=== PATIENT | male | born 1960 | race Caucasian/White ===

== ENCOUNTER 2016-11-02 02:55 | Inpatient (IN) | payer OTHER ==
[~2016-11-02] VITALS: Ht 177.8 cm; Wt 52.5 kg
--- NOTE | ~2016-11-02 | 2DMMODE ---
[facility] [place] [address] 2 D/M-MODE ECHOCARDIOGRAM Name: JOSERHETT Room #: 464-P ADM IN M.R.#: [id number] Admission: 11/02/16 Attend Phys: Rochelle Scherer Discharge: Date of : 64 Date of Service: 11/02/16 1429 Report #: [id number] THIS REPORT FOR: //name// APPROVED REPORT EXAM: Comprehensive 2D, Doppler, and color-flow Echocardiogram Patient Location: Bedside Blood Pressure: 85/53 mmHg HR: 85 bpm Other Information Study Quality: Adequate Indications COPD Chest Pain 2D Dimensions LVEF(%): 56.30 (>50%) IVSd: 6.43 (7-11mm) LVOT Diam: 20.70 (18-24mm) LVDd: 47.73 mm PWd: 6.83 (7-11mm) LVDs: 33.68 (25-40mm) IVC: 22.00 mm Aortic Root: 29.00 mm Douglas's LVEF: 56.30 % Volumes Left Atrial Volume (Systole) Single Plane 4CH: 20.11 mL Single Plane 2CH: 15.81 mL LA ESV Index: 12.00 mL/m2 Aortic Valve AoV Peak Richard.: 1.30 m/s AO Peak Gr.: 6.80 mmHg LV Max P.46 mmHg LV Max: 1.06 m/s Mitral Valve MV PHT: 81.92 ms MV E Max Richard.: 0.84 m/s E/A Ratio: 1.3 MV A Richard.: 0.64 m/s MV Decel. Time: 282.47 ms Pulmonary Valve [facility] [address] [place] [address] 2 D/M-MODE ECHOCARDIOGRAM Name: RHETT GARCIA Room #: 464- ADM IN .R.#: [id number] Admission: 11/02/16 Attend Phys: Rochelle Scherer Discharge: Date of : 64 Date of Service: 11/02/16 1429 Report #: [id number] PV Peak Richard.: 0.98 m/s PV Peak Gr.: 3.86 mmHg Tricuspid Valve RAP Estimate: 10.00 mmHg Left Ventricle The left ventricle is normal size. There is normal LV segmental wall motion. There is normal left ventricular wall thickness. Left ventricular systolic function is normal. The left ventricular ejection fraction is within the normal range. LVEF is 55-60%. The left ventricular diastolic function is normal. Right Ventricle The right ventricle is normal size. The right ventricular systolic function is normal. Atria The left atrium size is normal. The right atrium size is normal. Aortic Valve The aortic valve is normal in structure. No aortic regurgitation is present. There is no aortic valvular stenosis. Mitral Valve The mitral valve is normal in structure. There is no mitral valve regurgitation noted. Tricuspid Valve The tricuspid valve is normal in structure. There is no tricuspid valve regurgitation noted. Pulmonic Valve The pulmonary valve is normal in structure. There is no pulmonic valvular regurgitation. Great Vessels The aortic root is normal in size. The inferior vena cava is dilated with a decrease in inspiratory collapse. Pericardium There is no pericardial effusion. <Conclusion> The left ventricle is normal size. Left ventricular systolic function is normal. [facility] [address] [address] [place] [address] 2 D/M-MODE ECHOCARDIOGRAM Name: RHETT GARCIA Room #: 464-P ADM IN M.R.#: [id number] Admission: 11/02/16 Attend Phys: Rochelle Scherer Discharge: Date of : 64 Date of Service: 11/02/16 1429 Report #: [id number] LVEF is 55-60%. The inferior vena cava is dilated with a decrease in inspiratory collapse. <ELECTRONICALLY SIGNED> By: Jacobo Beltrán MD 11/02/16 1429 142 142 Jacobo Beltrán MD /INF
--- NOTE | ~2016-11-02 | EKG ---
[address] [address] ELECTROCARDIOGRAM REPORT Name: JOSERHETT Room #: 464-P ADM IN M.R.#: [id number] Admission: 11/02/16 Attend Phys: Hal Mora MD Discharge: Date of : 64 Report #: [id number] THIS REPORT FOR: //name// [facility] ED Test Date: 2016-11-01 Test Time: 22:21:30 Pat Name: RHETT GARCIA Department: Room: [facility] Gender: M Fashion Coordinator: LISSA : 1960 Requested By: Ulises Llanos Order Number: [id number] MD: Augusto Corona Measurements Intervals [place] Rate: 115 P: 31 DC: 145 QRS: 100 QRSD: 84 T: 8 QT: 320 QTc: 443 Interpretive Statements Sinus tachycardia Rightward axis No previous ECG available for comparison Electronically Signed On 11-02-2016 19:04:42 CDT by Augusto Corona [email or web address] <ELECTRONICALLY SIGNED> By: Augusto Corona MD, [facility] 11/02/16 1904 2220 20 Augusto Corona MD, FACC /EPI
--- NOTE | ~2016-11-02 | HC ---
[facility] [place] [address] CONSULTATION Name: RHETT GARCIA Room #: 464-P [facility] IN M.R.#: [id number] Admission: 11/02/16 Attend Phys: Hal Mora MD Discharge: 11/05/16 Date of : 64 Report #: [id number] THIS REPORT FOR: //name// CC: RICKY physician/PCP Hal Mora REASON FOR CONSULTATION: I was asked to evaluate concerning left lung infiltrate. HISTORY OF PRESENT ILLNESS: The patient is a 55-year-old with underlying emphysema, on outpatient program of inhalers. The patient had been homeless, but now lives in basement of a friend. About a week ago, he had the acute onset of fever, chills, cough with green purulent sputum production along with the subsequently development of left pleuritic chest pain. He denies hemoptysis. No nausea, vomiting, or diarrhea. He has had low grade fever. Continues to have intermittent chills and night sweats. He states he has lost about 30 pounds over the last year or two. He has been unable to put weight back on. Appetite has been reasonable. He smokes cigarettes. No travel outside the [place]. He is unemployed from labor type work. Exposure to dogs. He has had tuberculosis exposure when he was a child to his mother, although he thinks he was PPD negative when he was in the . Denies HIV risk factors and states his HIV is negative as of year ago. No significant alcohol intake. He does have dental issues with multiple fractured teeth. No history of sinus disease. He has underlying coronary disease and states he has had an infarct in the past. A month ago, he underwent lumbar spine surgery from anterior approach. Continues to have some abdominal discomfort regarding this. PAST MEDICAL HISTORY: Otherwise, no additions other than what is discussed above. ALLERGIES: LATEX and CODEINE. MEDICATIONS: Levaquin and prednisone were started 2 days ago. He continues on Levaquin and Solu-Medrol. FAMILY HISTORY: Noncontributory other than he states that his father may have had tuberculosis. SOCIAL HISTORY: As noted above. REVIEW OF SYSTEMS: No skin lesions, adenopathy, syncopal episodes, GI, or complaints. PHYSICAL EXAMINATION: VITAL SIGNS: Afebrile and hemodynamically stable. [address] [address] CONSULTATION Name: RHETT GARCIA Room #: 464-[facility] IN M.R.#: [id number] Admission: 11/02/16 Attend Phys: Hal Mora MD Discharge: 11/05/16 Date of : 64 Report #: [id number] GENERAL: He was alert and cooperative. Oxygen saturation was normal on room air. He was thin. Xerosis. No adenopathy. EYES: Unremarkable. MOUTH: Dentition in poor repair with multiple fractured teeth. NECK: Supple, without thyromegaly or mass. LUNGS: Decreased breath sounds bilaterally with no consolidation. I could appreciate no rub. HEART: Regular, without murmur. ABDOMEN: Soft, mild tenderness in the lower midline abdomen clara-incisional region. No masses or hepatosplenomegaly. EXTREMITIES: Unremarkable. LABORATORY STUDIES: Hemoglobin 11.7, white count 12.6, and platelet count 258,000. Sodium 141, potassium 3.9, bicarbonate 25, and creatinine 0.9. Liver function test normal. Troponin negative. ECG, sinus tach. Echocardiogram, normal ejection fraction. CT scan of the chest with IV contrast showed cystic emphysematous changes with 3.6 x 2.4 wedge-type infiltrate in the lingula, which abuts the pleural. Blood cultures are pending. Sputum culture is pending. Influenza antigen negative. IMPRESSION: A 55-year-old with chronic obstructive pulmonary disease, now with community-acquired pneumonia in the left lung associated with pruritus. I suspect bacterial community-acquired organisms. I doubt this would be malignancy given the previous images over the last several years have been negative along with the acute onset of his symptoms. Organisms of concern would be community bacterial in nature. We would recommend screening for MRSA. Check sputum for bacteria, fungus and AFB. Obtain a T-SPOT due to the patient's reported exposure and HIV testing. We will continue with Levaquin and corticosteroids pending further studies. <ELECTRONICALLY SIGNED> By: Ulises Galaviz MD 11/07/16 0934 1201 0041 Ulises Galaviz MD /nt
--- NOTE | ~2016-11-02 | CNG ---
[facility] [place] [address] CYTO-NONGYN REPORT PROCEDURE Name: ANGELAVALERIAMARISABELPEPITO Room #: 464-P [facility] IN M.R.#: [id number] Admission: 11/02/16 Date of : 64 Discharge: 11/05/16 Report #: [id number] Path Case #: [id number] CYTOPATHOLOGY REPORT COLLECTION DATE: 11/03/2016 RECEIVED DATE: 11/07/2016 SUBMITTING PHYS: Dr. Vicki Zayas OTHER PHYS: Dr. Morgan Hogn CLINICAL HISTORY: Pneumonia, chest pain, tachycardia. SPECIMEN(S) RECEIVED: A.Sputum * * * * * * * * * * * * FINAL DIAGNOSIS: A. Sputum: - No malignant cells identified. Squamous cells, mucus, and occasional bronchial epithelial cells and alveolar macrophages present. PATHOLOGIST: Iesha Santacruz M.D. REPORT ELECTRONICALLY SIGNED BY: Iesha Santacruz M.D. DATE/TIME: 11/08/2016 14:50 * * * * * * * * * * * * GROSS PATHOLOGY: A. Sputum: The specimen is submitted unfixed, labeled "Pepito Hernandes". Received by the Cytology Department is one mL of thick brown fluid. One ThinPrep slide was prepared. (clt 11.07.2016) EGG CANDLER(S): RENEE Cordoba([facility])IAC INITIAL CPT CODE(S): A; 32487 Professional services performed by [facility] at [facility] [address], [place] [address] Technical services performed by [facility] at [address] [place] [address]., [address], [place] [address]. [facility] [address] [place] [address], [facility] [address] [place] [address] PHONE: [phone] [facility] [address] [place] [address] CYTO-NONGYN REPORT PROCEDURE Name: PEPITO HERNANDES Room #: 464-P DIS IN M.R.#: [id number] Admission: 11/02/16 Date of : 64 Discharge: 11/05/16 Report #: [id number] Path Case #: [id number] DIRECTOR: Hima Hess M.D. * * * END OF REPORT * * *
[~2016-11-02 02:55] MED LIST: ADVAIR 250-501 EACH INH; AMOXICILLIN 50500 M1 PO; CORTISPORIN OTI10 ML OTIC; CYCLOBENZAPRINE5 MG PO; DUONEB 2.5-0.5 M3 ML INH; FLEXERIL PO; IBUPROFEN 600600 M1 PO; LEVAQUIN 500 M500 M2 PO; LEVAQUIN 500 M500 M5 PO; LEVAQUIN 750 M750 MG PO; LOVASTATIN 20 M20 MG PO; MOM PO; MUCINEX TA600 MG/TA2 PO; MUCINEX600 MG PO; NOHOMEMEDICATIONS; NORCO 5-325 TA1 EACH PO; NORFLEX100 MG PO; PAIN & FEVER325 MG PO; PENICILLIN VK500 M1 PO; PERCOCET 5-3251 EACH PO; PREDNISONE 10 M10 M1; PREDNISONE 10 M10 MG PO; PREDNISONE 20 M20 MG; PREDNISONE 20 M20 MG PO; PROAIR HFA8.5 GM INH; PROVENTIL HFA6.7 G1 INH; ROBAXIN 750 MG750 M1 PO; SPIRIVA INH; TYLENOL325 MG PO; VENTOLIN HFA 1818 GM INH; VENTOLIN HFA INH8 GM INH; VICODIN 5-5001 EACH PO; [UNRECOGNIZED DRUG - REMARK]
[2016-11-02] MEDS ORDERED: SPIRIVA18 MCG INH (03:07)
[2016-11-02] MEDS ORDERED: SYMBICORT160 MCG/4. INH (03:07)
[2016-11-02] MEDS ORDERED: PERCOCET 7.5-31 EACH PO (03:08)
[2016-11-02 03:35] LABS: ABSOLUTE NEUTROPHILS 9.8 thou/uL (1.4-8.2); BASOPHILS 0.2 % (0.0-2.0); EOSINOPHILS 0.2 % (0.0-3.0); HEMATOCRIT 41.6 % (42.0-52.0); LYMPHOCYTES 12.4 % (24.0-44.0); MCH 30.8 pg (26.0-34.0); MCHC 33.6 g/dL (28.0-37.0); MCV 91.5 fL (80.0-100.0); MONOCYTES 5.1 % (1.0-8.0); PLATELET COUNT 262 thou/uL (150-400); POLYS 82.1 % (36.0-66.0); RBC 4.55 mil/uL (4.50-6.00); RDW 13.5 % (10.5-14.5)
[2016-11-02 03:42] LABS: MANUAL DIFF NO
[2016-11-02 03:46] LABS: APTT 24.7 Seconds (24.5-32.8); PROTIME 10.2 Seconds (9.3-11.4)
[2016-11-02 03:58] LABS: ALBUMIN 3.5 g/dL (3.4-5.0); ALKALINE PHOSPHATASE 113 U/L (46-116); ANION GAP 9 mmol/L (7-16); BUN 15 mg/dL (7-18); CALCIUM 9.2 mg/dL (8.5-10.1); CHLORIDE 105 mmol/L (98-107); CK-MB MASS 1.8 ng/mL (<0.5-3.6); CO2 28 mmol/L (21-32); GLUCOSE 115 mg/dL (70-99); MAGNESIUM 2.1 mg/dL (1.8-2.4); NT-PRO BRAIN NAT PEPTIDE 153 pg/mL (<300); POTASSIUM 3.8 mmol/L (3.5-5.1); SGOT 20 U/L (15-37); SGPT 23 U/L (30-65); SODIUM 142 mmol/L (136-145); TOTAL BILIRUBIN 0.3 mg/dL (<0.1-1.0); TOTAL PROTEIN 7.1 g/dL (6.4-8.2); TROPONIN-I < 0.04 ng/mL (<0.04-0.07)
[2016-11-03 05:17] LABS: HEMATOCRIT 34.9 % (42.0-52.0); MCH 30.7 pg (26.0-34.0); MCHC 33.6 g/dL (28.0-37.0); MCV 91.5 fL (80.0-100.0); PLATELET COUNT 258 thou/uL (150-400); RBC 3.81 mil/uL (4.50-6.00); RDW 13.7 % (10.5-14.5); WBC 12.6 thou/uL (4.0-11.0)
[2016-11-03 05:26] LABS: HEMOGLOBIN 11.7 gm/dL (14.0-18.0)
[2016-11-03 05:27] LABS: MANUAL DIFF YES
[2016-11-03 05:47] LABS: CALCIUM 8.7 mg/dL (8.5-10.1); CREATININE 0.9 mg/dL (0.6-1.3); MAGNESIUM 1.9 mg/dL (1.8-2.4); POTASSIUM 3.9 mmol/L (3.5-5.1); TOTAL BILIRUBIN 0.2 mg/dL (<0.1-1.0); TOTAL PROTEIN 6.3 g/dL (6.4-8.2)
[2016-11-03 08:26] LABS: ABSOLUTE NEUTROPHILS 11.5 thou/uL (1.4-8.2); ANISOCYTOSIS SLIGHT; TOTAL CELL COUNT 100
[2016-11-03 22:31] LABS: HIV ANTIBODY Non Reactive (Non Reactive)
[2016-11-04 05:41] LABS: HEMATOCRIT 31.5 % (42.0-52.0); HEMOGLOBIN 10.8 gm/dL (14.0-18.0); MCH 31.1 pg (26.0-34.0); MCHC 34.3 g/dL (28.0-37.0); MCV 90.7 fL (80.0-100.0); RBC 3.47 mil/uL (4.50-6.00); RDW 13.4 % (10.5-14.5); WBC 10.6 thou/uL (4.0-11.0)
[2016-11-04 05:59] LABS: CALCIUM 8.4 mg/dL (8.5-10.1); CREATININE 0.9 mg/dL (0.6-1.3); POTASSIUM 3.7 mmol/L (3.5-5.1)
[2016-11-05] MEDS ORDERED: COLACE 100 MG100 MG PO (10:15)
[2016-11-05] MEDS ORDERED: PERCOCET 7.5-31 EACH PO (10:15)
[2016-11-05] MEDS ORDERED: LEVAQUIN 750 M750 MG PO (10:15)
[2016-11-05 19:06] LABS: BLASTOMYCES-IMMUNODIFF Negative (Neg:<1:1); HISTOPLASMA-IMMUNODIFF Negative (Neg:<1:1)
[2016-11-06 13:08] LABS: ASPERGILLUS FLAVUS-ID Negative (Neg:<1:1); ASPERGILLUS FUMIGATUS-ID Negative (Neg:<1:1); ASPERGILLUS NIGER-ID Negative (Neg:<1:1)
== END 2016-11-05 14:32 | disposition home or self-care (01) | DRG 194 ==
LOC: ER 02:55 → 4W 04:00 → EROBS 04:00 → 4W 04:57
PROVIDERS: Emergency Medicine; Family Medicine; Nurse Practitioner; Specialist
DX: J18.9 Pneumonia, unspecified organism (principal); J44.1 Chronic obstructive pulmonary disease with (acute) exacerbation; J44.0 Chronic obstructive pulmonary disease with (acute) lower respiratory infection; R07.81 Pleurodynia; I95.9 Hypotension, unspecified; D72.829 Elevated white blood cell count, unspecified; E78.5 Hyperlipidemia, unspecified; F17.210 Nicotine dependence, cigarettes, uncomplicated; G89.29 Other chronic pain; M54.9 Dorsalgia, unspecified; M54.2 Cervicalgia; R91.8 Other nonspecific abnormal finding of lung field; J45.909 Unspecified asthma, uncomplicated; F12.90 Cannabis use, unspecified, uncomplicated; F20.9 Schizophrenia, unspecified; Z91.048 Other nonmedicinal substance allergy status; Z88.6 Allergy status to analgesic agent; Z86.19 Personal history of other infectious and parasitic diseases; Z80.9 Family history of malignant neoplasm, unspecified; Z91.040 Latex allergy status
CPT/HCPCS: 10045

== ENCOUNTER 2018-10-12 13:23 | Inpatient (IN) | payer OTHER ==
[~2018-10-12] VITALS: Ht 177.8 cm; Wt 58.2 kg
[~2018-10-12 13:23] MED LIST changes: +COLACE 100 MG100 MG PO; +PERCOCET 7.5-31 EACH PO; +SPIRIVA18 MCG INH; +SYMBICORT160 MCG/4. INH
[2018-10-12 13:24] VITALS: BP 92/65
[2018-10-12] MEDS ORDERED: RIFAMPIN 300 M300 M1 PO (13:46)
[2018-10-12 14:46] LABS: ABSOLUTE NEUTROPHILS 6.5 thou/uL (1.4-8.2); BASOPHILS 0.3 % (0.0-2.0); EOSINOPHILS 0.3 % (0.0-3.0); HEMATOCRIT 35.2 % (42.0-52.0); HEMOGLOBIN 12.4 gm/dL (14.0-18.0); LYMPHOCYTES 5.2 % (24.0-44.0); MCH 30.3 pg (26.0-34.0); MCHC 35.1 g/dL (28.0-37.0); MCV 86.4 fL (80.0-100.0); MONOCYTES 10.1 % (1.0-8.0); PLATELET COUNT 402 thou/uL (150-400); POLYS 84.1 % (36.0-66.0); RBC 4.08 mil/uL (4.50-6.00); RDW 13.9 % (10.5-14.5); WBC 7.7 thou/uL (4.0-11.0)
[2018-10-12 15:02] LABS: CALCIUM 8.4 mg/dL (8.5-10.1); CREATININE 1.1 mg/dL (0.7-1.3); POTASSIUM 3.3 mmol/L (3.5-5.1)
[2018-10-12 15:06] LABS: ALBUMIN 2.5 g/dL (3.4-5.0); TOTAL BILIRUBIN 0.5 mg/dL (<0.1-1.0); TOTAL PROTEIN 7.1 g/dL (6.4-8.2)
[2018-10-12 16:00] LABS: URINE BLOOD 3+ (Negative); URINE CLARITY CLEAR; URINE COLOR BROWN; URINE GLUCOSE-RANDOM* TRACE (Negative); URINE KETONES TRACE (Negative); URINE LEUKOCYTES-REFLEX NEGATIVE (Negative); URINE NITRITE-REFLEX NEGATIVE (Negative); URINE PROTEIN (DIPSTICK) 2+ (Negative); URINE SPECIFIC GRAVITY >= 1.030 (1.005-1.035)
[2018-10-12 16:04] LABS: ICTOTEST (BILI CONFIRMATORY) Negative (Negative); URINE BILIRUBIN NEGATIVE (Negative)
[2018-10-12 16:11] LABS: CASTS None Seen /LPF (None Seen); CRYSTALS None Seen /LPF (None Seen); SQUAMOUS 0-3 Few /LPF (0-3); URINE RBC 3-10 Few /HPF (0-2)
[2018-10-12 16:12] LABS: BACTERIA-REFLEX 1-9 Few /HPF (None Seen); URINE WBC-REFLEX 0-5 Rare /HPF (0-5)
[2018-10-12 18:46] VITALS: BP 94/56
[2018-10-12 18:55] VITALS: BP 85/52
[2018-10-12 19:28] VITALS: BP 85/53
--- NOTE | 2018-10-12 19:33 | NUR ---
ADMISSION NOTE: PATIENT ARRIVED IN ROOM BY CART. IV FLUIDS AND ANTIBIOTICS STARTED IN ED. HE STOOLED IN HIS UNDREWEAR AT TIME OF ADMISSION. THIS IS THE ONLY OCCURANCE THAT THIS HAS HAPPENED IN THIS PAST TWO WEEKS. ORIENTED TO ROOM AND SURROUDINGS. DENIES PAIN. HE HAS A PRODUCTIVE COUGH
--- NOTE | 2018-10-12 23:09 | NUR ---
CALLING OUT, WANTING A BREATHING TREATMENT. HE DID NOT HAVE ANY TREATMENTS ORDERED. RECIEVED ORDER FOR PRN ALBUTEROL NEBS. IV ANTIBIOTICS STARTED ORDERED. O2 SATURATION IS 95%, AND HE IS ABLE TO TALK CLEARLY AND GETS UP TO RESTROOM. COMPLAINING THAT HIS LINGS ARE CLAMPING DOWN. HE IS VERY FUSSY TONIGHT AND NEEDS REASSURANCE.
--- NOTE | 2018-10-13 01:24 | NUR ---
OOO1: PATIENT IN THE RESTROOM SMOKING A CIGARETTE. HE STATED THAT HE NEEDED TO SMOKE BECAUSE HIS LUNGS ARE CLAMPING DOWN ( HE STATED IT). I OFFERED HIM A NICOTINE PATCH AND HE REFUSED TO ACCECPT. HE STATED THAT HE IS NOT ADDICTED AND THAT HE ONLY SMOKES CIGARETTES MEDICINALLY. I REMOVED ALL CIGARETTES AND LIGHTERS FROM THE ROOM AND SENT TO SECURITY. 0125: CALLED OUT SAYING THAT THE IV ANTIBIOTICS ARE CAUSING HIM TO HAVE LEG CRAMPS AND RESTLESS LEG SYNDROME. NO RASH, OR SIGNS OR ALLERGIC REACTION. BENADRYL ORDERED FOR PATIENT TO HELP HIM REST.
--- NOTE | 2018-10-13 02:31 | EKG ---
[address] [place] [address] ELECTROCARDIOGRAM REPORT Name: RHETT GARCIA Room #: 361-P ADM IN M.R.#: [id number] ������������������ Admission: 10/12/18 ������������������ Attend Phys: Breanna Pompa Discharge: ������������������ Date of : 64 Report #: [id number] ����������������������������������������������������������������� [id number] THIS REPORT FOR: //name// [facility] ED Test Date: 2018-10-12 Test Time: 13:38:15 Pat Name: HRETT GARCIA Department: Room: 361 Gender: M Chicken Catcher: NILTON : 1960 Requested By: Claudia Nicole Order Number: [id number] MD: Jacobo Beltrán Measurements Intervals [place] Rate: 125 P: 94 NH: 119 QRS: 26 QRSD: 65 T: 71 QT: 284 QTc: 410 Interpretive Statements Sinus tachycardia biatrial enlargement RSR' in V1 or V2, probably normal variant Compared to ECG 11/01/2016 22:21:30 RSR' in V1 or V2 now present nonspecific ST-T wave changes Electronically Signed On 10-13-2018 2:31:14 FLOORWORKER by Jacobo Beltrán [email or web address] ��������������������������������������������� <ELECTRONICALLY SIGNED> ���������������������������������������� By: Jacobo Beltrán MD ��������������������������������������������� 10/13/18 0231 1338 1338 Jacobo Beltrán MD /EPI
[2018-10-13 03:07] LABS: IgA 201 mg/dL (90-386); IgG 829 mg/dL (700-1600); IgM 120 mg/dL (20-172)
[2018-10-13 04:00] VITALS: BP 103/64
--- NOTE | 2018-10-13 04:55 | NUR ---
DIFFUCULTY GETTING PT TO URINATE INTO THE URNIAL TONIGHT. HE OPTED FOR USING THE TOILET EACH TIME. I HAVE INSTRUCTED HIM MULTIPLE TIMES. HE IS RESISTANT TO ALLOWING ME TO START ANOTHER IV SITE TONIGHT. HE HAD TO HAVE A NEW ONE AT START OF THE SHIFT AND PREFERS TO NOT GET STUCK AGAIN. STAGGERING ANTIBIOTICS TO ALLOW EACH TO BE GIVEN BACK TO BACK. HE HAS A FORCEFUL COUGH AND REFUSES TO TAKE ANYTHING TO HELP HIM EXPECTORATE.
[2018-10-13 08:03] VITALS: BP 102/58
[2018-10-13 11:43] VITALS: BP 97/75
[2018-10-13 15:55] VITALS: BP 92/54
--- NOTE | 2018-10-13 17:18 | NUR ---
Assumed care of Pt at 0700. Pt alert and oriented, in no acute distress. complaining of loose stools since admission - stool sample collected and submitted to lab. various nasal swabs also collected. up ad james w /steady gait. up ad james w/ steady gait. SR/ST on telemetry. pt progressing towrad poc goals.
[2018-10-13 19:30] VITALS: BP 104/65
[2018-10-14 04:50] VITALS: BP 100/62
--- NOTE | 2018-10-14 05:16 | NUR ---
Assumed care of pt at 2300. pt alert and oriented x4. Pt coughs frequently. Pt temp this am 102.3. PRN acetaminophen administered. IVF and antibiotics administered. Up ad james. Will continue to monitor.
[2018-10-14 06:37] LABS: ALBUMIN 1.9 g/dL (3.4-5.0); PHOSPHORUS 1.6 mg/dL (2.5-4.9)
[2018-10-14 06:40] LABS: POTASSIUM 2.9 mmol/L (3.5-5.1)
[2018-10-14 08:04] VITALS: BP 89/54
[2018-10-14 14:35] LABS: POTASSIUM 3.5 mmol/L (3.5-5.1)
[2018-10-14 16:15] VITALS: BP 106/61
[2018-10-14 19:46] VITALS: BP 99/54
[2018-10-15 00:18] VITALS: BP 92/54
[2018-10-15 04:02] VITALS: BP 105/62
[2018-10-15 07:46] VITALS: BP 103/61
--- NOTE | 2018-10-15 07:52 | NUR ---
Pt a/o x 4. C/o SOA upon exertion. O2 2L NC applied, pt reports no or significantly less SOA upon exertion since application of O2 2L NC. Periodic coughs with whitish sputum, cough meds given per order. SR on monitor. Low grade fever to afebrile. Pt stated this AM "I'm feeling better today." Pt resting in bed comfortably without apparent distress noted at this time. Fall precautions maintained. Call light with reach. Shift change completed with incoming day-shift RN.
--- NOTE | 2018-10-15 11:17 | NUR ---
care of pt assume this am @ ~0700. pt noted to be resting in his bed w/ the tv on. pt denies soa while at rest, but does not soa w/ activity (ambulation to the bthrm), thus the noc rn placed pt on oxygen via nc which he said has helped him breath easier and rest more comfortably. pt up ad james w/ a steady, balanced and coordinated gait, although he does co ble muscle fatigue post bthrm visit. pt states his normal bm are formed and maybe 4bm/month, but as of late he co diarrhea (multiple loose stools in a day), none noted/seen today by rn. pt w/ a poor appetite for food this am at breakfast, states that with the diarrhea it makes him not hungry. pt denies co pain or fever this am. no labs ordered for today. noted mr retrieval from [facility] ordered. ivf's infusing w/o concern this am.
[2018-10-15 13:12] LABS: HIV ANTIBODY Non Reactive (Non Reactive)
--- NOTE | 2018-10-15 13:34 | NUR ---
INITIAL ASSESSMENT: Pt evaluated for d/c planning needs. Reviewed chart and spoke with nurse and pt. Pt is alert and oriented. Pt lives in [place] [place] [facility] with son and unrelated adults. Pt was independent with ADL's and used cane for ambulation. Pt has nebulizer at home. Pt has not had home health in the past. Pt plans on returning home on d/c from hospital. Will remain available to assist as needed.
[2018-10-15 16:32] VITALS: BP 100/56
[2018-10-15 19:34] VITALS: BP 97/61
--- NOTE | 2018-10-15 20:36 | HC ---
[facility] [place] [address] CONSULTATION Name: JOSERHETT Room #: 361-P ADM IN M.R.#: [id number] Admission: 10/12/18 ������������������ Attend Phys: Breanna Pompa Discharge: ������������������ Date of : 64 Report #: [id number] THIS REPORT FOR: //name// CC: RICKY physician/PCP Breanna IVEY DATE OF SERVICE: 10/12/2018 REASON FOR CONSULTATION: I was asked to evaluate concerning pneumonia and sepsis. HISTORY OF PRESENT ILLNESS: The patient is a 57-year-old with emphysema and the recent diagnosis of Mycobacterium avium complex infection. He was evaluated at [facility]. He was found to have extensive left upper lobe disease. Three months ago, he was started on azithromycin, rifampin and ethambutol. He took the combination for a month. He then said that his prescription was not refilled, unclear exactly why because he continued on rifampin. So he has been on rifampin for last 2 months as monotherapy. He has not yet followed up with [facility]. He did note that prior to beginning his treatment, he was having significant amount of sputum production and episodes of hemoptysis along with chest discomfort, fever, night sweats and weight loss. After a month of his combination treatment, he began to feel better. Over the last 2 weeks, he has had progressive shortness of breath along with fever, chills, purulent sputum production. Some mild substernal chest discomfort. No hemoptysis. Temperature got up to 103 degrees. He came into the Emergency Room today for further evaluation. No travel. He is disabled, previously worked in construction. No animal exposure. His son is now with him and able to assist him in his care. He has known dental caries. No history of aspiration. He has lost about 10 pounds in the last 2 weeks. He has been HIV negative. No ongoing HIV risk factors. He has been PPD screened multiple times, all negative, although he was exposed to tuberculosis as a child. Both the patient and nursing staff have discussed with the staff at [facility], all state that his tuberculosis screens have all been negative. This is within the last several months. He has underlying coronary artery disease, but this has been stable. He has emphysema, but he has been on no corticosteroids. He does take inhaled steroids. REVIEW OF SYSTEMS: He has had dry skin his whole life. No adenopathy. No bleeding disorder. No diabetes or thyroid disease reported. No nausea or vomiting. He had some loose stools today. No dysuria or frequency. A 10-point review was negative other than what is described above. PAST MEDICAL HISTORY: He is a tobacco user, previous sinusitis, coronary artery disease with infarct, lumbar spinal surgery, ventral hernia repair, spinal stenosis, hyperlipidemia, hepatitis B. [address] [address] CONSULTATION Name: RHETT GARCIA Room #: 361-P [facility] IN M.R.#: [id number] Admission: 10/12/18 ������������������ Attend Phys: Breanna Pompa Discharge: ������������������ Date of : 64 Report #: [id number] ALLERGIES: LATEX, CODEINE. MEDICATIONS: As noted on his MAR, comes in on inhalers and rifampin. FAMILY HISTORY: Noncontributory other than his father may have had tuberculosis. SOCIAL HISTORY: Smoker of cigarettes and marijuana. No alcohol intake. PHYSICAL EXAMINATION: VITAL SIGNS: Temperature was 33.77, pulse 96, respiratory rate 20, blood pressure 85/52. Prior to this, his temperature was up to 103 degrees. GENERAL: He was alert and cooperative. He was very thin, had xerosis. No palpable adenopathy. HEENT: Eyes, without scleral icterus or conjunctivitis. He does wear glasses. Mouth with dental caries. No other lesions. NECK: Supple. No thyromegaly or mass. Neck veins are flat. He had a peripheral IV in place. LUNGS: Decreased breath sounds bilaterally. There was some consolidation in the left mid posterior chest. HEART: Regular, without murmur. ABDOMEN: Soft, nontender, no hepatosplenomegaly or mass. EXTREMITIES: Without cyanosis, clubbing or edema. Cranial nerves intact. Strength in upper and lower extremities normal. Sensation normal. GENITAL AND RECTAL: Not performed. PSYCHIATRIC: Mood normal. LABORATORY STUDIES: Sodium 133, potassium 3.3, bicarbonate 26, creatinine 1.1. Liver function test normal. Lactate 1.9. Hemoglobin 12.4, white count 7.7, platelet count 402,000. Urinalysis 2+ protein. Chest x-ray, left upper lobe infiltrate with some traction evident. Blood cultures are pending. Sputum culture pending. IMPRESSION: A 57-year-old with: 1. Emphysema and left upper lobe, complicated infiltrate. I suspect much of this is old given the patient's reported history. How much of this is new is yet to be determined. His acute febrile illness and hypotension, I suspect a lot of this is related to dehydration and malnutrition. I am suspecting pulmonary source for his fever and current presentation. 2. Emphysema. 3. Pulmonary Mycobacterium avium complex disease, inappropriately treated due to the patient unable to obtain his appropriate antibiotics. The cause of his current pulmonary infection could be exacerbation of his MAC versus secondary bacterial pneumoniae versus viral pneumoniae. Still cannot rule out underlying malignancy as also a contributor. [facility] [address] [place] [address] CONSULTATION Name: ANGELAVALERIAPRASHANTRHETT Room #: 361-P ADM IN M.R.#: [id number] Admission: 10/12/18 ������������������ Attend Phys: Breanna Pompa Discharge: ������������������ Date of : 64 Report #: [id number] RECOMMENDATION: IV fluids. Begin broad spectrum antibiotics, start antiviral therapy and restart his MAC treatment. Obtain cultures for bacteria, fungus, AFB screen with urine antigens and serology studies. We will repeat his CT scan of the chest and compare it to study from [facility]. We will obtain records from [facility] to further identify his microbiology and imaging studies. The patient will need inpatient care. Duration yet to be determined. ��������������������������������������������� <ELECTRONICALLY SIGNED> ���������������������������������������� By: Ulises Galaviz MD ��������������������������������������������� 10/15/18 2036 1920 0359 Ulises Galaviz MD /nt
--- NOTE | 2018-10-16 05:06 | NUR ---
FOLLOWING POC FOR IVPB ANTIBIOTICS AND FLUIDS. HOURLY ROUNDING. PT STATES HE POOPED HIS PANTS DUE TO NO ONE ANSWERING CALL LIGHT. COMPLETE BED CHANGE WAS DONE. CALLED RT PT REQUESTED. PT THEN REFUSING ALBUTEROL STATING, "I DO NOT LIKE THE SIDE EFFECTS, INCREASED HEART RATE....". RT STATED THAT ATROV COULD NOT BE GIVEN UNTIL AFTER 0600. SUGGESTED CALLING RAILROAD CONSTRUCTION DIRECTOR AND GETTING ONE TIME OR MOVING IT TO PRN. HOURLY ROUNDING. CALL LIGHT WORKING.
--- NOTE | 2018-10-16 05:20 | NUR ---
PT WAS SMOKING IN THE BATHROOM AGAIN AT 0520. STATES THAT WAS HIS LAST CIGARETTE AND IT HELPS HIM BREATH BETTER. RT WAS ON SCENE DUE TO PT REQUESTING RT TREATMENT. RT WALKED INTO BATHROOM AND COULD ACTIVELY SMELL SMOKE. PT CONFIRMED THAT HE WAS SMOKING. EDUCATED PT ON HAZARDS OF SMOKING WITH OXYGEN BEING GIVEN DIRECTLY TO HIM WELL OTHER PATIENTS. CALLED BRANDING MACHINE OPERATOR AND GAVE HER A SITREP.
[2018-10-16 05:57] LABS: CALCIUM 7.6 mg/dL (8.5-10.1); POTASSIUM 3.3 mmol/L (3.5-5.1)
[2018-10-16 16:16] VITALS: BP 103/60
[2018-10-16 17:11] LABS: HISTOPLASMA MYCELIAL-ID Negative (Negative)
[2018-10-16 21:40] VITALS: BP 126/75
[2018-10-16 23:07] LABS: HISTOPLASMA MYCELIAL-CF Negative (Neg:<1:2)
--- NOTE | 2018-10-17 00:52 | NUR ---
APPROACHED PT FOR MIDNIGHT ROUNDS. NOTED TO BE SHIVERING. ORAL TEMP 102.8. ROOM TEMP SET AT 80 DEGREES, DECREASED TO 75. BLANKET REMOVED FROM PT. TYLENOL GIVEN. PT STATED THAT HE NEEDS THE ROOM TEMP KEPT AT 79-83 DEGREES BECAUSE HE GETS COLD EASY. "I CAN'T REGULATE MY TEMP VERY WELL, I DON'T HAVE AN EPIDERMIS." PT ENCOURAGED TO CALL IF HE FEELS HE IS HAVING ANY SHAKE, CHILLS OR SWEATS. "I DON'T WANT TO COME ACROSS PARANOID." HE ALSO STATED THAT HE HAS HAD VARIOUS ISSUES THROUGHOUT HIS LIFE AND HAS HAD TO LEARN TO LIVE WITH PAIN. AGAIN, ENCOURAGED PT TO CALL WITH ANY ISSUES OF PAIN OR SENSE OF FEVER. ENCOURAGED TO PARTICIPATE IN HIS CARE BY REPORTING ANY OF THESE ISSUES THE ARISE TO THE NURSE.
[2018-10-17 02:06] LABS: ADENOVIRUS Negative (Negative); INFLUENZA A Negative (Negative); INFLUENZA B Negative (Negative); METAPNEUMOVIRUS Negative (Negative); PARAINFLUENZA 1 Negative (Negative); PARAINFLUENZA 2 Negative (Negative); PARAINFLUENZA 3 Negative (Negative); RHINOVIRUS Negative (Negative); RSV A Negative (Negative); RSV B Negative (Negative)
[2018-10-17 03:15] VITALS: BP 108/64
--- NOTE | 2018-10-17 06:28 | NUR ---
PT MAKING SLOW PROGRESS TOWARDS GOALS. PT HAD 102.8 ORAL TEMP OVENIGHT. TYLENOL GIVEN AND TEMP WAS 99.0 APPROXIMATELY 2 HOURS LATER AND THAT HE WAS FEELING MUCH BETTER.
[2018-10-17 08:45] VITALS: BP 108/66
--- NOTE | 2018-10-17 14:14 | NUR ---
ALERT ORIENTED X4. IN GOOD SPIRITS AT THIS TIME. MED RECORDS REQUESTED FROM [facility] AND PER DR العراقي. NOTED TO HAVE FEVER AND TREATED WITH TYLENOL WHICH WAS EFFECTIVE. STATES HE FEELS MUCH BETTER TODAY. BREATHING IS BETTER AND HE IS LESS FATIQUE. WILL CONT WITH PLAN OF CARE.
--- NOTE | 2018-10-17 14:48 | NUR ---
SW reviewed chart and spoke with nursing and attending physician. Pt had fever earlier today. Pt remains on IV abx: ceftriaxone and continuous O2. Pt was not on O2 prior to admission. Medical records from [facility] have been requested per ID. Plan is for pt to d/c home when medically stable. TRACY is following to assist as needed with discharge planning.
[2018-10-17 16:25] VITALS: BP 106/61
--- NOTE | 2018-10-17 16:36 | NUR ---
PATIENT IS REFUSING HIS IV NS STATING HE IS URINATING A LOT. TEMP 101.9 AT THIS TIME AND PRN TYLENOL WILL BE ADMINISTERED. WILL CONT WITH PLAN OF CARE.
--- NOTE | 2018-10-17 19:55 | NUR ---
APPROACHED PT FOR INITIAL ASSESSMENT. PT FOUND TO BY LYING IN BED WITH SHEET AND TWO BLANKETS OVER HIM. ORAL TEMP 101.0 DEGREES. ENCOURAGED PT TO REMOVE BLANKETS, TO JUST KEEP THEM OVER HIS FEET. EXPLAINED THAT PT NEEDS TO PROVIDE A WAY FOR THE HEAT TO ESCAPE HIS BODY VERSUS TRAPPING THAT HEAT TO HIMSELF. DID ACKNOWLEDGE TO THE PT THAT THE IMPULSE TO COVER UP IN RESPONSE TO SHIVERING IS DIFFICULT TO RESIST. DESPITE THE DISCUSSION PT DID NOT REMOVE THE BLANKETS. NOTED TYLENOL DOSE GIVEN JUST PRIOR TO 1700 HOURS FOR FEVER OF 101.9 DEGREES. WILL CONTINUE TO MONITOR.
[2018-10-17 20:20] VITALS: BP 104/60
[2018-10-18 04:08] VITALS: BP 97/59
--- NOTE | 2018-10-18 05:17 | NUR ---
PT MAKING SLOW PROGRESS TOWARDS GOALS. NOTED ORAL TEMP OF 102 DEGREES LAST NIGHT, TREATED WITH IBUPROFEN. F/U TEMP WAS 99.0 DEGREES. THIS AM PT HAD 100.1 TEMP AND WAS GIVEN TYLENOL BY REQUEST. CONTINUE TO MONITOR.
[2018-10-18 05:32] LABS: ABSOLUTE NEUTROPHILS 5.5 thou/uL (1.4-8.2); BASOPHILS 0.9 % (0.0-2.0); EOSINOPHILS 1.6 % (0.0-3.0); HEMATOCRIT 34.8 % (42.0-52.0); HEMOGLOBIN 11.5 gm/dL (14.0-18.0); LYMPHOCYTES 11.3 % (24.0-44.0); MCH 29.3 pg (26.0-34.0); MCV 88.8 fL (80.0-100.0); MONOCYTES 9.3 % (1.0-8.0); PLATELET COUNT 451 thou/uL (150-400); POLYS 76.9 % (36.0-66.0); RBC 3.92 mil/uL (4.50-6.00); RDW 13.8 % (10.5-14.5); WBC 7.1 thou/uL (4.0-11.0)
[2018-10-18 05:49] LABS: CALCIUM 8.1 mg/dL (8.5-10.1); CREATININE 0.9 mg/dL (0.7-1.3); POTASSIUM 3.6 mmol/L (3.5-5.1); TOTAL BILIRUBIN 0.3 mg/dL (<0.1-1.0); TOTAL PROTEIN 6.4 g/dL (6.4-8.2)
[2018-10-18 08:18] VITALS: BP 105/66
[2018-10-18 15:16] VITALS: BP 98/61
--- NOTE | 2018-10-18 15:44 | NUR ---
Patient cont to have fevers today and has been treated alternatively with tylenol and ibuprofen. Temp checked q2hrs to treat early pyrexia before he gets chills. He has been pleasant and cooperative with care. States he is going to have his friends come and pray with him for the fevers. Dr. Calero consulted. Will cont with plan of care.
--- NOTE | 2018-10-18 15:48 | NUR ---
SW reviewed chart and spoke with nursing and attending physician. Pt was moved to droplet isolation due to possible TB per ID. Pt with fever overnight and remains on IV abx and continuous O2. Plan is for pt to return home when medically stable. TRACY is following to assist as needed with discharge planning.
[2018-10-18 21:10] VITALS: BP 110/60
[2018-10-18 23:55] VITALS: BP 105/58
--- NOTE | 2018-10-19 04:57 | NUR ---
ASSUMED PT CARE AROUND 1900. A&OX4. C/O MILD NON-CARDIAC CHEST PAIN, WHICH HE STATES HIS WORSE WHEN HE IS SOA. VSS. TYLENOL AND IBUPROFEN GIVEN FOR FEVER. FEVER IMPROVED. PT SLEPT MOST OF THE NIGHT. RESP EVEN AND UNLABORED. UP AD TONNY TO BTR. NO MAJOR COMPLAINTS THIS SHIFT. REFUSED LOVENOX AT HS; PT STATED HE DOESN'T THINK HE NEEDS IT EVERY DAY. EDUCATION PROVIDED. PROGRESSING SLOWLY TOWARD POC GOALS. WILL CONTINUE TO MONITOR FURTHER.
[2018-10-19 05:25] VITALS: BP 104/63
[2018-10-19 07:31] VITALS: BP 90/56
--- NOTE | 2018-10-19 14:26 | HC ---
[facility] [place] [address] CONSULTATION Name: RHETT GARCIA Room #: 349-I ADM IN M.R.#: [id number] Admission: 10/12/18 ������������������ Attend Phys: Breanna Pompa Discharge: ������������������ Date of : 64 Report #: [id number] THIS REPORT FOR: //name// CC: RICKY physician/PCP Breanna IVEY REFERRAL PHYSICIAN: Dr. Alfonso. REASON FOR REFERRAL: Pneumonia. HISTORY OF PRESENT ILLNESS: The patient is a 57-year-old white male who was admitted on 10/12 with pneumonia. With persistence of febrile illness, increasing infiltrates, pulmonary consultation was requested. 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 He was found to have a left upper lobe infiltrates, was felt to be extensive. He was given triple antibiotics including azithromycin and Rifampin and ethambutol. The patient stated he took it for a month, but did not continue all three antibiotics. He stopped the Rifampin and continued 2 other antibiotics for 2 more months. The patient has known COPD with emphysema. According to records, he has not had a followup at [facility] for his pneumonia. He presents to the Emergency Department here with increasing dyspnea for the past 2 weeks. His chest x-ray and chest CT reviewed showing extensive infiltrate involving the left upper lobe with bullous changes. Currently, he feels short of breath. He remains febrile. 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 PAST SURGICAL HISTORY: Includes lumbar spinal surgery, ventral hernia repair. ALLERGIES: LATEX AND CODEINE, REACTIONS UNSPECIFIED. HOME MEDICATIONS AND CURRENT MEDICATIONS: List reviewed. This includes Spiriva, Symbicort, along with rifampin, hydrocodone, recent course of prednisone. [facility] [address] [place] [address] CONSULTATION Name: RHETT GARCIA Room #: 349-I ADM IN [facility].#: [id number] Admission: 10/12/18 ������������������ Attend Phys: Breanna Pompa Discharge: ������������������ Date of : 64 Report #: [id number] FAMILY HISTORY: Noncontributory. SOCIAL HISTORY: He continues to smoke about a pack a day. REVIEW OF SYSTEMS: As mentioned above, otherwise 10-point system review negative. PHYSICAL EXAMINATION: GENERAL: He is awake, alert, appears to be in mild distress, dyspneic. VITAL SIGNS: Temperature has been 102-100 degrees Fahrenheit. Pulse is 97, respiratory rate is 20, blood pressure 98/61 mmHg and saturation 96%. HEENT: Normocephalic, atraumatic. NECK: Supple, without any lymphadenopathy or thyromegaly. CHEST: Breath sounds are fair. Coarse crackles in the left upper lung field. No wheezes. CARDIOVASCULAR: Normal S1, S2. No murmurs or gallop. There is no JVD. There is no carotid bruit. Pulses are 2+/4+ bilaterally. ABDOMEN: Soft, nontender, no organomegaly or masses felt. GENITOURINARY: Deferred. RECTAL: Deferred. EXTREMITIES: There is no edema, cyanosis or clubbing. LABORATORY DATA: HIV 1 and 2 antibody are negative. Sputum culture from 10/12/2018 revealed moderate gram-positive cocci, few gram-positive rods, moderate gram-negative rods. Blood cultures have been negative. Sputum AFB cultures from 10/12/2017 was positive for AFB smear. 1+, 4-36 acid fast bacilli per 1000 power field. Culture is pending. Histoplasma antibody is negative. Respiratory viral panel PCR is negative. Electrolytes normal, creatinine is normal. Liver enzymes are grossly unremarkable. WBC 7100, hemoglobin 11.5, platelets mildly elevated. Albumin 2.0. A chest x-ray reviewed. Chest x-ray shows extensive bullous changes with consolidative infiltrate seen in the left upper lobe with some evidence of volume loss and fibrosis. CT chest from 10/13/2018 showed an extensive bilateral bullous changes along with extensive consolidation, fluid filled areas in the left upper lobe, cystic changes are seen. There appears to be scar-like tissue involving the left upper lobe in the apical area. This chest CT was then compared to the outside chest CT performed at [facility] from 07/23/2018. There appears to be progression of the extensive irregular parenchymal opacification involving the left upper lobe, lingula. IMPRESSION: 1. Progressive left upper lobe infiltrates in this 57-year-old white male with [address] [address] CONSULTATION Name: RHETT GARCIA Room #: 349-I ADM IN M.R.#: [id number] Admission: 10/12/18 ������������������ Attend Phys: Breanna Pompa Discharge: ������������������ Date of : 64 Report #: [id number] a recent diagnosis of Mycobacterium avium complex infection. He has not been compliant with taking medications. Review of the chest CT from 07/2018-09/2018 shows progression of infiltrative changes in the left upper lobe. The patient underwent bronchoscopy previously at [facility] around May-June. The cultures grew Mycobacterium avium complex. Mycobacterium tuberculosis appeared to have been ruled out at that time. The patient continues to be febrile with progressive infiltrates. His recent sputum culture from 10/12 grew multiple organisms. AFB smear again remains positive 1+. Cultures pending. Please see comments below. 2. Chronic obstructive pulmonary disease, bullous emphysema bilaterally. Severity is unknown, but suspect severe impairment. 3. Spinal stenosis, chronic back pain. 4. Chronic hepatitis B. RECOMMENDATION AND DISCUSSION: I think it is reasonable to proceed with repeat bronchoscopy for left upper lobe evaluation along with obtaining specimen including washing and possible biopsy if able. Given her recent sputum culture was positive, I would like to await final cultures including the AFB smear cultures. I think for now, continue antibiotics per Infectious Disease. The persistence of febrile illness may also be in part related to necrotizing pneumonia as suggested by the most recent chest CT involving the anterior segment of the left upper lobe. I will follow closely. Thank you for this consultation. ��������������������������������������������� <ELECTRONICALLY SIGNED> ���������������������������������������� By: Naldo Calero MD ��������������������������������������������� 10/19/18 1426 1854 1317 Naldo Calero MD /nt
--- NOTE | 2018-10-19 15:04 | NUR ---
SW reviewed chart and spoke with nursing and attending physician. Pt with fever and may need bronchoscopy per pulm. Pt remains on IV abx and O2. Plan is for pt to d/c home with his son when medically stable. Pt was not on O2 prior to admission. TRACY is following to assist as needed with discharge planning.
[2018-10-19 16:02] VITALS: BP 102/60
--- NOTE | 2018-10-19 19:17 | NUR ---
Assumed care of patient at 0700. Vitals have been stable. Alert and oriented x4. Denies pain. Pre-medicating with Tylenol and Ibuprofen, alternating, for fever coverage. Maintaining oxygen saturations on 2L NC. [place] SOB this evening after activity. Oxygen saturation at 97%. Called for PRN breathing treatment. Encouraged patient to call if still feeling SOB. Verbalizes understanding. Lots of sputum today; thick pale yellow. New sputum sample collected and sent to lab for cytology per Dr. Calero. Patient up ad james in room. IVF and IV antibiotics as ordered. Attempting to progress towards POC. Will continue to monitor.
[2018-10-19 19:39] VITALS: BP 103/61
[2018-10-19 23:36] VITALS: BP 98/63
--- NOTE | 2018-10-20 03:14 | NUR ---
ASSUMED PT CARE AROUND 1900. A&OX4. C/O MILD NON-CARDIAC CHEST PAIN DUE TO COUGHING. FEVER IMPROVED WITH IBUPROFEN. PT SLEPT MOST OF THE NIGHT. RESP EVEN AND UNLABORED. UP AD TONNY TO THE BTR. STEADY GAIT. PROGRESSING SLOWLY TOWARD POC GOALS. WILL CONTINUE TO MONITOR FURTHER.
[2018-10-20 04:07] VITALS: BP 113/68
[2018-10-20 06:15] LABS: HEMATOCRIT 32.5 % (42.0-52.0); HEMOGLOBIN 10.8 gm/dL (14.0-18.0); MCH 29.6 pg (26.0-34.0); MCHC 33.2 g/dL (28.0-37.0); MCV 89.1 fL (80.0-100.0); RBC 3.65 mil/uL (4.50-6.00); RDW 13.8 % (10.5-14.5); WBC 6.7 thou/uL (4.0-11.0)
[2018-10-20 06:36] LABS: CALCIUM 8.2 mg/dL (8.5-10.1); CREATININE 0.9 mg/dL (0.7-1.3); POTASSIUM 3.8 mmol/L (3.5-5.1)
[2018-10-20 07:49] VITALS: BP 91/54
[2018-10-20 15:48] VITALS: BP 95/61
--- NOTE | 2018-10-20 18:26 | NUR ---
Assumed care of patient at 0700. Running low-grade fever on and off throughout the day; treating with alternating Tylenol and Ibuprofen. BP soft. Otherwise, VSS. Denies pain. Up ad james to bathroom with steady gait. Feels SOB after activity at times. Maintaining oxygen saturations on 2L NC. Not coughing as much sputum up today. Dr. Calero asked to call patient's son to provide update and discuss the plan. IVF and IV antibiotics per orders. Attempting to progress towards POC. Will continue to monitor.
[2018-10-20 19:18] VITALS: BP 98/55
[2018-10-20 23:22] VITALS: BP 97/61
--- NOTE | 2018-10-21 03:22 | NUR ---
ASSUMED PT CARE AROUND 1900. A&OX4. BETTER CONTROL OF FEVERS THIS SHIFT. SOA IMPROVED SINCE PREVIOUS NIGHT. PT STATES HE FEELS A LITTLE BETTER. UP AD TONNY AROUND THE ROOM WITH STEADY GAIT. PT SLEPT MOST OF THE NIGHT. RESP EVEN AND UNLABORED. PROGRESSING SLOWLY TOWARD POC GOALS. WILL CONTINUE TO MONITOR FURTHER.
[2018-10-21 04:17] VITALS: BP 114/63
[2018-10-21 08:28] VITALS: BP 108/60
--- NOTE | 2018-10-21 13:16 | NUR ---
Assumed care of patient at 0700. Vitals have been stable. Better control of fevers today, although continue to alternate between Tylenol and Ibuprofen for coverage. Patient feels overall about the same. States did not get much sleep last night so is wanting to rest this afternoon. New sputum collected and sent to lab per Dr. Stuart's orders. Up ad james in room with steady gait. Continued IVF and IV antibiotics. Attempting to progress towards POC. Will continue to monitor.
[2018-10-21 15:05] VITALS: BP 111/65
[2018-10-21 19:50] VITALS: BP 99/56
[2018-10-22 03:31] VITALS: BP 96/59
[2018-10-22 06:09] LABS: CALCIUM 7.9 mg/dL (8.5-10.1); CREATININE 0.8 mg/dL (0.7-1.3); POTASSIUM 3.9 mmol/L (3.5-5.1)
--- NOTE | 2018-10-22 07:31 | NUR ---
SLEPT PART OF SHIFT. UP AD TONNY NEEDED WITH STEADY GAIT. TEMP MAX 101.3 AT START OF SHIFT TONIGHT. WORKING ON GOALS AND PLAN OF CARE FOR NOC. PROGRESSING TOWARDS DISCHARGE GOALS SLOWLY. DENIES COMPLAINTS OF PAIN THIS SHIFT. MAINTAIN SAFE ENVIRONMENT.
[2018-10-22 07:45] VITALS: BP 104/61
--- NOTE | 2018-10-22 10:47 | NUR ---
Received consult for eventual discharge planning. SW reviewed chart and spoke with nursing. Pt remains in isolation. Pt had fever of 102 overnight. Pt remains on IV abx and O2. Pt was not on O2 prior to admission. Plan is for pt to discharge home with his son when medically stable. TRACY is following to assist as needed with discharge planning.
--- NOTE | 2018-10-22 15:24 | NUR ---
PT REPORTS SOME DIARRHEA TODAY AND IMMODIUM 4MG GIVEN...
[2018-10-22 19:00] VITALS: BP 108/66
[2018-10-23 03:30] VITALS: BP 105/66
--- NOTE | 2018-10-23 06:41 | NUR ---
SLEPT MOST OF SHIFT. UP AD TONNY IN ROOM WITH STEADY GAIT. MAINTAIN SAFE ENVIRONMENT. WORKING ON GOALS AND PLAN OF CARE FOR NOC. NPO PAST MIDNIGHT FOR BRONCH THIS AM. NOT PROGRESSING TOWARDS DISCHARGE GOALS AT THIS TIME. RT HERE FOR BREATHING TREATMENT. CONTINUE TO ASSES.
[2018-10-23 07:17] VITALS: BP 110/62
--- NOTE | 2018-10-23 10:07 | PATH ---
[facility] [address] [place] [address] PATHOLOGY RPT PROCEDURE Name: RHETT GARCIA Room #: 349-I ADM IN M.R.#: [id number] ������������������ Admission: 10/12/18 ������������������ Date of : 64 Discharge: Report #: [id number] Path Case #: [id number] Note LCA Accession Number: [id number] TESTS RESULT FLAG UNITS REF RANGE LAB Clinician Provided Cytology Information No. of containers..01 Other (Miscellaneous) Source: SPUTUM DIAGNOSIS: 02 SPUTUM NEGATIVE FOR MALIGNANT CELLS. NORMAL BRONCHIAL CELLS AND MACROPHAGES ARE PRESENT. Signed out by: 02 Bee Gleason MD, Pathologist NPI- [id number] Performed by: 01 Faraz Mojica, Loan Funder ([facility]) Gross description: 01 5ML, YELLOW, THICK /LCS FLAG LEGEND: L-Low Normal,H-High Normal,LL-Alert Low,HH-Alert High <-Panic Low,>-Panic High,A-Abnormal,AA-Critical Abnormal Performed at: [address] [place] [address] Juan Krause MD, [address] [address] Bee Gleason MD, Specimen Comment: A courtesy copy of this report has been sent to Specimen Comment: [phone], . Specimen Comment: Report sent to DR SU / DR PERES Specimen Comment: Report sent to Specimen Comment: A duplicate report has been generated due to demographic updates. Performed at: [address], [place], [place] [id number] MD Juan Krause MD Phone: [phone]
--- NOTE | 2018-10-23 12:43 | NUR ---
SW reviewed chart and spoke with nursing and attending physician. Pt had fever overnight. Pt to have bronch today per pulm. Pt remains on IV abx and O2. TRACY is following to assist as needed with discharge planning.
--- NOTE | 2018-10-23 15:01 | NUR ---
PT NPO THIS MORN FOR BRONCH..LEFT FLOOR @ 0745 AND BACK @ 1000...REPORTS INCREASED COUGHING AFTER BRONCH..AIRBORNE PREC MAINTAINED..CX TO R/O TB SHOULD BE COMPLETE BY WED PER JAILENE ID...
[2018-10-23 16:31] VITALS: BP 102/60
[2018-10-23 19:17] VITALS: BP 120/76
--- NOTE | 2018-10-24 03:41 | NUR ---
SLEPT PART OF SHIFT. UP AD TONNY IN ROOM WITH STEADY GAIT. MAINTAIN SAFE ENVIRONMENT. STATES DAUGHTER IS COMING TO VISIT THIS WEEKEND. STATES NOT SURE IF THE DOCTORS WILL DO SURGERY. WORKING ON GOALS AND PLAN OF CARE FOR NOC. TEMP HIGH 100.2 AND TREATED. NOT PROGRESSING TOWARDS DISCHARGE AT THIS TIME. DENIES COMPLAINTS OF PAIN NEEDING MEDICATION. STATES SHORTNESS OF AIR IS BETTER WITH ACITIVITY. CONTINUE TO ASSES.
[2018-10-24 04:08] VITALS: BP 106/63
[2018-10-24 07:09] VITALS: BP 97/63
--- NOTE | 2018-10-24 09:56 | PATH ---
[facility] [address] [place] [address] PATHOLOGY RPT PROCEDURE Name: RHETT GARCIA Room #: 349-I ADM IN M.R.#: [id number] ������������������ Admission: 10/12/18 ������������������ Date of : 64 Discharge: Report #: [id number] Path Case #: [id number] Note LCA Accession Number: [id number] TESTS RESULT FLAG UNITS REF RANGE LAB Clinician Provided Cytology Information No. of containers..01 Other (Miscellaneous) Source: SPUTUM DIAGNOSIS: 02 SPUTUM NEGATIVE FOR MALIGNANT CELLS. PULMONARY MACROPHAGES (DUST CELLS) ARE PRESENT. FUNGAL ORGANISMS MORPHOLOGICALLY CONSISTENT WITH "RANI" SPECIES ARE PRESENT. NUMEROUS SQUAMOUS EPITHELIAL CELLS,SUGGESTIVE OF ORAL CONTAMINATION. Signed out by: 02 Bee Gleason MD, Pathologist NPI- [id number] Performed by: 01 Faraz Mojica, Corrections Corporal ([facility]) Gross description: 01 2ML, COLORLESS, CLOUDY /LCS FLAG LEGEND: L-Low Normal,H-High Normal,LL-Alert Low,HH-Alert High <-Panic Low,>-Panic High,A-Abnormal,AA-Critical Abnormal Performed at: [address] [place] [address] Juan Krause MD, [address] [address] Bee Gleason MD, Specimen Comment: A courtesy copy of this report has been sent to Specimen Comment: [phone]. Specimen Comment: Report sent to Specimen Comment: A duplicate report has been generated due to demographic updates. Performed at: [address], [place], [place] [id number] MD Juan Krause MD Phone: [phone]
--- NOTE | 2018-10-24 14:20 | NUR ---
SW received consult from ID to assist with pt getting an audiology appt at [facility] after discharge. SW reviewed chart and spoke with nursing and attending physician. CTS consulted--Surgical recommendation for possible left upper lobe resection for MAC. Pt was febrile overnight. SW is following to assist as needed with discharge planning.
[2018-10-24 16:44] VITALS: BP 121/74
[2018-10-24 19:06] VITALS: BP 109/67
--- NOTE | 2018-10-24 19:37 | NUR ---
PT ON 3L NC...PRODUCTIVE COUGH WITH [place] THICK SPUTUM...LUNGS COARSE...
--- NOTE | 2018-10-25 01:55 | NUR ---
PT IS HAPPY HE IS NOT ATTACHED TO THE IV ACCOUNTING LECTURER NOW HE STATED. PT CALLS ACCORDINGLY TO EXPRESS HIS NEEDS. STILL WAITING FOR A STOOL SAMPLE. HOURLY ROUNDING. PT OFF ISOLATION PRECAUTIONS. CALL LIGHT WITHIN REACH.
--- NOTE | 2018-10-25 02:22 | NUR ---
DURING ROUNDS PT WAS DISCOVERED TO HAVE LOW GRADE TEMP. GAVE 600MG OF IBUPROPHEN. PT ALSO HAS A GOOD PRODUCTIVE COUGH WITH COPIOUS AMOUNTS OF FLEM RESULTING.
[2018-10-25 05:11] VITALS: BP 107/60
[2018-10-25 08:11] VITALS: BP 110/75
[2018-10-25 15:08] VITALS: BP 115/73
--- NOTE | 2018-10-25 15:11 | NUR ---
TRACY reviewed chart and spoke with nursing and attending physician. Pt continues to have intermittent fevers. CTS is following for possible lobectomy. TRACY faxed clinical info to [facility] for review. Pt will need a rest/exercise oximetry completed prior to discharge to determine pt's home O2 needs. Will need prior authorization from [place]-Medicaid. TRACY is following to assist as needed with discharge planning.
--- NOTE | 2018-10-25 17:56 | NUR ---
PT CONTINUES TO REPORT NON CARDIAC CHEST PAIN THAT HE STATES WILL ONLY BE RELIEVED IF I LET HIME HAVE A CIGARETTE..REFUSED NEED FOR NICOTENE PATCH...O2 3L...LUNGS COARSE WITH PROD COUGH..
[2018-10-25 19:30] VITALS: BP 124/74
[2018-10-26 04:00] VITALS: BP 118/69
--- NOTE | 2018-10-26 07:24 | NUR ---
PATIENT IS PROGRESSING IN HIS CARE PLAN. VITAL SIGNS STABLE WITH PATIENT HAVING NO COMPLAINTS OF NAUSEA. PATIENT DID COMPLAIN OF PAIN IN CHEST WHICH WAS TREATED EFFECTIVELY WITH MEDICATION. BREATHING STABLE ON TWO LITERS NASAL CANNULA EVIDENCED BY SPOT OXYGENATION CHECKS IN ACCEPTABLE RANGE. UP AD TONNY THROUGHOUT SHIFT INCIDENT FREE, PATIENT APPEARED STRONG AND BALANCED WHEN AMBULATING. CONTINUE PLAN OF CARE.
[2018-10-26 07:46] VITALS: BP 106/62
--- NOTE | 2018-10-26 11:09 | PATH ---
[facility] [address] [place] [address] PATHOLOGY RPT PROCEDURE Name: RHETT GARCIA Room #: 349-I ADM IN M.R.#: [id number] ������������������ Admission: 10/12/18 ������������������ Date of : 64 Discharge: Report #: [id number] Path Case #: [id number] Note LCA Accession Number: [id number] TESTS RESULT FLAG UNITS REF RANGE LAB Clinician Provided Cytology Information No. of containers..01 Other (Miscellaneous) Source: BRUSHINGS PAN DIAGNOSIS: 02 BRUSHINGS PAN NEGATIVE FOR MALIGNANT CELLS. REACTIVE BRONCHIAL CELLS ARE PRESENT. PULMONARY MACROPHAGES (DUST CELLS) ARE PRESENT. Pathologist ICD10: 02 J18.9 Signed out by: 02 Bee Gleason MD, Pathologist NPI- [id number] Performed by: 01 Faraz Mojica, Registered Nurse Nursery ([facility]) FLAG LEGEND: L-Low Normal,H-High Normal,LL-Alert Low,HH-Alert High <-Panic Low,>-Panic High,A-Abnormal,AA-Critical Abnormal Performed at: [address] [place] [address] Juan Krause MD, [address] [address] Bee Gleason MD, Specimen Comment: A courtesy copy of this report has been sent to Specimen Comment: [phone], . Specimen Comment: Report sent to Specimen Comment: A duplicate report has been generated due to demographic updates. Performed at: [address], [place], [place] [id number] MD Juan Krause MD Phone: [phone]
--- NOTE | 2018-10-26 11:09 | PATH ---
[facility] [address] [place] [address] PATHOLOGY RPT PROCEDURE Name: RHETT GARCIA Room #: 349-I ADM IN M.R.#: [id number] ������������������ Admission: 10/12/18 ������������������ Date of : 64 Discharge: Report #: [id number] Path Case #: [id number] Note LCA Accession Number: [id number] TESTS RESULT FLAG UNITS REF RANGE LAB Clinician Provided Cytology Information No. of containers..01 Other (Miscellaneous) Source: BRUSHTIP RML DIAGNOSIS: 02 [place] RML NEGATIVE FOR MALIGNANT CELLS. REACTIVE BRONCHIAL CELLS ARE PRESENT. PULMONARY MACROPHAGES (DUST CELLS) ARE PRESENT. ABUNDANT RED BLOOD CELLS ARE PRESENT. Pathologist ICD10: 02 J18.9 Signed out by: 02 Bee Gleason MD, Pathologist NPI- [id number] Performed by: 01 Faraz Mojica, Heater Engineer Helper ([facility]) FLAG LEGEND: L-Low Normal,H-High Normal,LL-Alert Low,HH-Alert High <-Panic Low,>-Panic High,A-Abnormal,AA-Critical Abnormal Performed at: [address] [place] [address] Juan Krause MD, [address] [address] Bee Gleason MD, Specimen Comment: A courtesy copy of this report has been sent to Specimen Comment: [phone], . Specimen Comment: Report sent to Specimen Comment: A duplicate report has been generated due to demographic updates. Performed at: [address], [place], [place] [id number] MD Juan Krause MD Phone: [phone]
--- NOTE | 2018-10-26 11:09 | PATH ---
[facility] [address] [place] [address] PATHOLOGY RPT PROCEDURE Name: RHETT GARCIA Room #: 349-I ADM IN M.R.#: [id number] ������������������ Admission: 10/12/18 ������������������ Date of : 64 Discharge: Report #: [id number] Path Case #: [id number] Note LCA Accession Number: [id number] TESTS RESULT FLAG UNITS REF RANGE LAB Clinician Provided Cytology Information No. of containers..01 Other (Miscellaneous) Source: BRUSHTIP PAN DIAGNOSIS: 02 [place] PAN NEGATIVE FOR MALIGNANT CELLS. REACTIVE BRONCHIAL CELLS ARE PRESENT. ABUNDANT RED BLOOD CELLS ARE PRESENT. Pathologist ICD10: 02 J18.9 Signed out by: 02 Bee Gleason MD, Pathologist NPI- [id number] Performed by: 01 Faraz Mojica, Plc Programmer ([facility]) FLAG LEGEND: L-Low Normal,H-High Normal,LL-Alert Low,HH-Alert High <-Panic Low,>-Panic High,A-Abnormal,AA-Critical Abnormal Performed at: [address] [place] [address] Juan Krause MD, [address] [address] Bee Gleason MD, Specimen Comment: A courtesy copy of this report has been sent to Specimen Comment: [phone], . Specimen Comment: Report sent to Specimen Comment: A duplicate report has been generated due to demographic updates. Performed at: [address], [place], [place] [id number] MD Juan Krause MD Phone: [phone]
--- NOTE | 2018-10-26 11:09 | PATH ---
[facility] [address] [place] [address] PATHOLOGY RPT PROCEDURE Name: RHETT GARCIA Room #: 349-I ADM IN M.R.#: [id number] ������������������ Admission: 10/12/18 ������������������ Date of : 64 Discharge: Report #: [id number] Path Case #: [id number] Note [facility] Accession Number: [id number] TESTS RESULT FLAG UNITS REF RANGE LAB Clinician Provided Cytology Information No. of containers..01 Other (Miscellaneous) Source: BRUSHINGS RML DIAGNOSIS: BRUSHINGS RML NEGATIVE FOR MALIGNANT CELLS. REACTIVE BRONCHIAL CELLS ARE PRESENT. PULMONARY MACROPHAGES (DUST CELLS) ARE PRESENT. Pathologist ICD10: 02 J18.9 Signed out by: 02 Bee Gleason MD, Pathologist NPI- [id number] Performed by: 01 Faraz Mojica, Furniture Assembly Supervisor ([facility]) FLAG LEGEND: L-Low Normal,H-High Normal,LL-Alert Low,HH-Alert High <-Panic Low,>-Panic High,A-Abnormal,AA-Critical Abnormal Performed at: [address] [place] [address] Juan Krause MD, [address] [id number] Bee Gleason MD, Specimen Comment: A courtesy copy of this report has been sent to Specimen Comment: [phone], . Specimen Comment: Report sent to Specimen Comment: A duplicate report has been generated due to demographic updates. Performed at: [address], [place], [place] [id number] MD Juan Krause MD Phone: [phone]
[2018-10-26 12:28] VITALS: BP 109/63
--- NOTE | 2018-10-26 14:21 | NUR ---
SW reviewed chart and spoke with nursing and attending physician. Plan is for pt to have lobectomy next week when medically stable. SW discussed case with [facility] liaison, who states they will be able to provide home O2 for pt if he qualifies and once [place]-Medicaid has given prior-auth. TRACY is following to assist as needed with discharge planning.
[2018-10-26 15:01] VITALS: BP 114/71
[2018-10-26 19:15] VITALS: BP 108/69
--- NOTE | 2018-10-26 19:41 | NUR ---
PATIENT IS ALERT ORIENTED X4. PROGRESSING TOWARDS GOALS. HE DID NOT VOICED COMPLAIN OF PAIN THIS PM. HAD ONE EPISODE OF FEVER AND WAS TREATED WITH TYLENOL WHICH WAS EFFECTIVE. WILL CONT WITH PLAN CARE.
[2018-10-27 03:21] VITALS: BP 114/67
[2018-10-27 03:55] LABS: CALCIUM 8.3 mg/dL (8.5-10.1); CREATININE 0.8 mg/dL (0.7-1.3); POTASSIUM 3.9 mmol/L (3.5-5.1)
[2018-10-27 08:00] VITALS: BP 105/67
--- NOTE | 2018-10-27 08:44 | NUR ---
PT A&OX4, IV INTACT IN L FA, AMBULATES SELF IN ROOM, TELE READS SINUS TACH. VSS AFEBRILE AT THIS TIME. LUNG SOUNDS DIM. DENIES PAIN.WILL CONT POC.
[2018-10-27 08:48] LABS: ABSOLUTE NEUTROPHILS 5.2 thou/uL (1.4-8.2); BASOPHILS 1.3 % (0.0-2.0); EOSINOPHILS 2.6 % (0.0-3.0); HEMATOCRIT 33.2 % (42.0-52.0); HEMOGLOBIN 11.1 gm/dL (14.0-18.0); LYMPHOCYTES 10.5 % (24.0-44.0); MCH 29.2 pg (26.0-34.0); MCHC 33.3 g/dL (28.0-37.0); MCV 87.6 fL (80.0-100.0); MONOCYTES 9.9 % (1.0-8.0); PLATELET COUNT 596 thou/uL (150-400); POLYS 75.7 % (36.0-66.0); RBC 3.79 mil/uL (4.50-6.00); RDW 14.1 % (10.5-14.5); WBC 6.8 thou/uL (4.0-11.0)
--- NOTE | 2018-10-27 08:48 | NUR ---
PATIENT IS ALERT AND IS UP AD TONNY. NO ISOLATION. PATIENT IS 2L NC 90%. PATIENT HAS RT TREATMENTS. PATIENT IS PENDING LOBECTOMY IN NEAR FUTURE. WCM.
[2018-10-27 08:57] LABS: CALCIUM 9.1 mg/dL (8.5-10.1); CREATININE 0.9 mg/dL (0.7-1.3); POTASSIUM 4.2 mmol/L (3.5-5.1)
[2018-10-27 15:00] VITALS: BP 105/69
[2018-10-27 20:02] VITALS: BP 108/72
--- NOTE | 2018-10-28 03:10 | NUR ---
PATIENT IS CALM AND COOPERATIVE WITH CARE AND MEDS. PATIENT DENIED PAIN OR DISCOMFORT.PATIENT IS ON 2L OF OXYGEN NO SHORTNESS OF AIR OR DISTRESS NOTED AT THIS TIME. FAMILY AT BEDSIDE. PATIENT IS UP AT TONNY.PATIENT IN BED ASLEEP AT THIS TIME BREATHING REGULAR AND UNLABOURED.
[2018-10-28 03:16] VITALS: BP 99/72
[2018-10-28 07:14] VITALS: BP 104/61
--- NOTE | 2018-10-28 07:40 | NUR ---
PT A&OX4, IV INTACT IN L FA, AMBULATES SELF IN ROOM. VSS. DENIES ANY NEEDS AT THIS TIME, DAUGHTER STAYED WITH PT AND IS AT BEDSIDE. WILL CONT. POC.
[2018-10-28 12:32] VITALS: BP 108/69
[2018-10-28 16:49] VITALS: BP 98/57
[2018-10-28 19:22] VITALS: BP 102/71
--- NOTE | 2018-10-29 03:08 | NUR ---
PT HAS NO STATED COMPLAINTS THIS EVENING. THERE WAS NO FEVER AGAIN THIS SHIFT. FOLLOWING POC WITH [facility]PB ANTIBIOTICS. NO MORE LOOSE STOOLS, BUT PT STATES HE IS HAVING NUMEROUS BM'S. OBSERVED SPUTUM, SEEMS LESS WITH SOME LIGHT RED BLOOD PRESENT IN THE SPUTUM. HOURLY ROUNDING.
[2018-10-29 04:26] LABS: ABSOLUTE NEUTROPHILS 5.3 thou/uL (1.4-8.2); BASOPHILS 1.2 % (0.0-2.0); EOSINOPHILS 3.6 % (0.0-3.0); HEMATOCRIT 33.1 % (42.0-52.0); LYMPHOCYTES 12.4 % (24.0-44.0); MCH 29.4 pg (26.0-34.0); MCHC 33.2 g/dL (28.0-37.0); MCV 88.3 fL (80.0-100.0); MONOCYTES 10.7 % (1.0-8.0); PLATELET COUNT 526 thou/uL (150-400); POLYS 72.1 % (36.0-66.0); RBC 3.75 mil/uL (4.50-6.00); RDW 14.4 % (10.5-14.5); WBC 7.4 thou/uL (4.0-11.0)
[2018-10-29 04:42] LABS: ALBUMIN 2.4 g/dL (3.4-5.0); CALCIUM 8.6 mg/dL (8.5-10.1); POTASSIUM 4.1 mmol/L (3.5-5.1); TOTAL BILIRUBIN 0.1 mg/dL (<0.1-1.0); TOTAL PROTEIN 7.7 g/dL (6.4-8.2)
[2018-10-29 05:33] VITALS: BP 106/68
[2018-10-29 08:54] VITALS: BP 197/65
[2018-10-29 15:26] VITALS: BP 106/66
--- NOTE | 2018-10-29 15:57 | NUR ---
SW received consult to assist with pt's outpatient IM medications. Order written for pt to have Amikacin 500mg IM every M-W- for three months. Pt may not be ready for lobectomy for several more weeks. TRACY met with pt at bedside to discuss discharge plan. SW offered to have an LTAC evaluate pt for admission, for continued medical mgmt/therapy services. Pt declines and states that he wants to go home and has support at home. Pt may need home O2 at time of discharge as well. TRACY discussed order from [facility] for IM meds. Pt verbalized understanding. SW provided options for home infusion companies that would be able to provide the medication. No preference voiced. TRACY faxed clinical info and order to [facility] for review. TRACY updated [facility] liaison. Awaiting input from [facility] at this time. TRACY is following to assist as needed with discharge planning.
[2018-10-29 19:30] VITALS: BP 107/69
--- NOTE | 2018-10-29 19:43 | NUR ---
PT STARTING PLANS FOR DISCHARGE TO HOME WITH ANTIBIOTICS UNTIL ALBUMIN IMPROVES THEN WILL PROBABLY HAVE LOBECTOMY AT THAT TIME...
--- NOTE | 2018-10-30 03:12 | NUR ---
ASSUMED PT CARE AROUND 1900. A&OX4. C/O SORENESS IN HIS CHEST DUE TO COUGHING. TYLENOL GIVEN WITH SOME RELIEF. VSS. LOW GRADE FEVER AT BEGINNING OF SHIFT; RESOLVED. UP AD TONNY AROUND THE ROOM WITH STEADY GAIT. PT WALKED ONCE AROUND THE UNIT. TOLERATED WELL. NO MAJOR COMPLAINTS THIS SHIFT. PT REPORTED HE HAD A BOWEL MOVEMENT. PROGRESSING TOWARD POC GOALS. WILL CONTINUE TO MONITOR FURTHER.
[2018-10-30 03:40] VITALS: BP 102/63
[2018-10-30 07:29] VITALS: BP 98/71
[2018-10-30] MEDS ORDERED: RIFAMPIN 300 M300 M1 PO (11:28)
[2018-10-30] MEDS ORDERED: MYAMBUTOL 400400 M1 PO (11:28)
[2018-10-30] MEDS ORDERED: AZITHROMYCIN 2250 MG PO (11:28)
[2018-10-30] MEDS ORDERED: AMIKACIN (500 MG/2 M IV (11:30)
[2018-10-30 11:42] VITALS: BP 98/71
[2018-10-30] MEDS ORDERED: AMIKACIN (500 MG/2 M IM (13:17)
--- NOTE | 2018-10-30 13:19 | NUR ---
DISCHARGE NOTE: TRACY reviewed chart and spoke with nursing and attending physician. Pt is medically stable for discharge home today. TRACY discussed with [facility] liaison, who states pt's copay for the Amikacin IM injections are $2.00 for 6 doses. [facility] liaison currently meeting with pt to discuss copay. Pt's family is able to assist with injections. TRACY requested rest/exercise oximetry to assess pt for home O2 needs. Awaiting rest/exercise oximetry results. [facility] is following for home O2. Contact info for [facility] placed in pt's discharge summary. Pt will have transportation home. TRACY is following to assist as needed with discharge planning.
[2018-10-30 15:24] VITALS: BP 98/71
[2018-10-30 15:45] VITALS: BP 117/74
[2018-10-30 15:47] VITALS: BP 98/71
--- NOTE | 2018-10-30 16:54 | NUR ---
DISCHARGED HOME WITH HH..WILL DO IM INJECTIONS PER ORDERS..DOES NOT NEED HOME O2..SATS WERE 100% ON RA...
== END 2018-10-30 16:53 | disposition home health service (06) | DRG 871 ==
LOC: ER 13:23 → 3W 16:57 → EROBS 16:57 → 3W 19:07 → ENTRNSPT 10-30 16:42 → 3W 10-30 16:53
PROVIDERS: Internal Medicine; Internal Medicine Pulmonary Disease; Pediatrics; Physician Assistant; Specialist; ADMIT Hospitalist
PROC: 0B9G8ZX Drainage of Left Upper Lung Lobe, Via Natural or Artificial Opening Endoscopic, Diagnostic (ICD-10-PCS; principal; 2018-10-23)
PROC: 0BDG8ZX Extraction of Left Upper Lung Lobe, Via Natural or Artificial Opening Endoscopic, Diagnostic (ICD-10-PCS; principal; 2018-10-23)
PROC: 0BD58ZX Extraction of Right Middle Lobe Bronchus, Via Natural or Artificial Opening Endoscopic, Diagnostic (ICD-10-PCS; principal; 2018-10-23)
DX: A41.9 Sepsis, unspecified organism (principal); J15.8 Pneumonia due to other specified bacteria; J85.0 Gangrene and necrosis of lung; B18.1 Chronic viral hepatitis B without delta-agent; E46 Unspecified protein-calorie malnutrition; Z68.1 Body mass index [BMI] 19.9 or less, adult; A31.0 Pulmonary mycobacterial infection; R65.20 Severe sepsis without septic shock; E78.5 Hyperlipidemia, unspecified; M19.90 Unspecified osteoarthritis, unspecified site; J43.9 Emphysema, unspecified; M48.00 Spinal stenosis, site unspecified; E86.0 Dehydration; I25.10 Atherosclerotic heart disease of native coronary artery without angina pectoris; R19.7 Diarrhea, unspecified; G83.9 Paralytic syndrome, unspecified; R09.02 Hypoxemia; Z91.040 Latex allergy status; Z88.5 Allergy status to narcotic agent; Z91.048 Other nonmedicinal substance allergy status; Z91.19 Patient's noncompliance with other medical treatment and regimen; I25.2 Old myocardial infarction; Z80.9 Family history of malignant neoplasm, unspecified
CPT/HCPCS: 10879; 62110; 62900; 70005